=== PATIENT | male | born 1980 | race Caucasian/White ===

== ENCOUNTER 2018-02-19 15:24 | Emergency (ER) | payer OTHER ==
[~2018-02-19] VITALS: Ht 182.9 cm; Wt 97.1 kg
[2018-02-19] MEDS ORDERED: OLAN10TA3 PO (16:00)
[2018-02-19] MEDS ORDERED: PROP10TA8 (16:00)
[2018-02-19] MEDS ORDERED: AMLO5TAB2 (16:00)
[2018-02-19] MEDS ORDERED: CARB200T5 (16:00)
[2018-02-19] MEDS ORDERED: TERA1CAP3 (16:00)
[2018-02-19 16:58] LABS: BASOPHILS % (AUTO) 0 % (0-10); EOSINOPHILS # (AUTO) 0.4 10^3/uL (0.0-0.3); EOSINOPHILS % (AUTO) 7 % (0-10); HEMATOCRIT 42 % (40-54); HEMOGLOBIN 14.5 G/DL (13.3-17.7); LYMPHOCYTES # (AUTO) 2.3 X 10^3 (1.0-4.0); LYMPHOCYTES % (AUTO) 36 % (12-44); MEAN CORPUSCULAR HEMOGLOBIN 30 PG (25-34); MEAN CORPUSCULAR HGB CONC 34 G/DL (32-36); MEAN CORPUSCULAR VOLUME 87 FL (80-99); MONOCYTES # (AUTO) 0.5 X 10^3 (0.0-1.0); MONOCYTES % (AUTO) 8 % (0-12); NEUTROPHILS # (AUTO) 3.2 X 10^3 (1.8-7.8); NEUTROPHILS % (AUTO) 49 % (42-75); PLATELET COUNT 239 10^3/uL (130-400); RED BLOOD COUNT 4.84 10^6/uL (4.35-5.85); RED CELL DISTRIBUTION WIDTH 12.9 % (10.0-14.5); WHITE BLOOD COUNT 6.5 10^3/uL (4.3-11.0)
[2018-02-19 17:01] LABS: PROTHROMBIN TIME PATIENT 12.9 SEC (12.2-14.7)
[2018-02-19 17:10] LABS: ALANINE AMINOTRANSFERASE 20 U/L (0-55); ALBUMIN 4.4 GM/DL (3.2-4.5); ALKALINE PHOSPHATASE 89 U/L (40-136); BILIRUBIN,TOTAL < 0.1 MG/DL (0.1-1.0); BUN/CREATININE RATIO 8; CALCIUM 9.1 MG/DL (8.5-10.1); CARBON DIOXIDE 25 MMOL/L (21-32); CHLORIDE 106 MMOL/L (98-107); CREATININE SERUM 0.83 MG/DL (0.60-1.30); GFR ESTIMATED > 60; GLUCOSE 96 MG/DL (70-105); MAGNESIUM 2.1 MG/DL (1.8-2.4); POTASSIUM 4.2 MMOL/L (3.6-5.0); SODIUM 136 MMOL/L (135-145); TOTAL PROTEIN 6.9 GM/DL (6.4-8.2)
[2018-02-19 17:29] LABS: TSH (THYROID ANALYZER) 2.46 UIU/ML (0.35-4.94)
--- NOTE | 2018-02-19 17:43 | Diagnostic Imaging Report ---
PROCEDURE: CT head without contrast. TECHNIQUE: Multiple contiguous axial images were obtained through the brain without the use of intravenous contrast. INDICATION: Left-sided tingling and numbness. FINDINGS: Ventricles and cortical gyral pattern are normal. There is no intracranial hemorrhage. No mass effect. There is no extra-axial fluid collection. Basal cisterns are clear. Mastoid air cells and paranasal sinuses are clear. IMPRESSION: Negative CT scan of the head without contrast. Dictated by: Dictated on workstation # [id number]
[2018-02-19 18:00] LABS: BILIRUBIN,URINE NEGATIVE (NEGATIVE); CLARITY,URINE CLEAR; COLOR,URINE YELLOW; GLUCOSE, URINE (UA) NEGATIVE (NEGATIVE); KETONES,URINE NEGATIVE (NEGATIVE); LEUKOCYTE ESTERASE ,URINE NEGATIVE (NEGATIVE); NITRITE,URINE NEGATIVE (NEGATIVE); PH,URINE 5 (5-9); PROTEIN,URINE NEGATIVE (NEGATIVE); UROBILINOGEN,URINE NORMAL (NORMAL)
--- NOTE | 2018-02-19 18:05 | ED Cardiac General ---
History of Present Illness General Chief Complaint: Cardiac/General Problems Stated Complaint: ELEV BP/EXTREMITY TINGLING COMES AND GOES Nursing Triage Note: C/O OF HIGH B/P. STATES HE'S NOT FEELING LIKE HIMSELF. DID HAVE AN APPT. AT 4 TO GET CHECKED BUT DECIDED TO COME HERE. HE FEELS TINGLING L-ARM ET L-LEG ET FOOT.STATED HE STARTED A NEW B/P MED ON MONDAY. STATES HE DOESN'T KNOW IF HIS TEETH HAVE ANYTHING TO DO WITH HIS B/P. Source: patient Exam Limitations: other (SOMEWHAT VAGUE, DIFFICULT HISTORIAN) History of Present Illness Date Seen by Provider: Feb 19, 2018 Time Seen by Provider: 16:30 Initial Comments PT ARRIVES VIA POV C/O ELEVATED BLOOD PRESSURE PT STATES HE HAS A HISTORY OF HTN AND HAS BEEN ON TERAZOSIN FOR A LONG TIME, NO RECENT DOSE CHANGES. PT ALSO TAKES PROPRANOLOL, BUT STATES IT IS FOR "GENA" AND NOT PRESCRIBED FOR BLOOD PRESSURE PT STATES HE HAS SEVERAL TEETH THAT NEED TO BE PULLED AND A MONTH AGO, HE WAS SEEN AT A DENTAL CLINIC IN [place], BUT THEY WOULD NOT PULL HIS TEETH BECAUSE HIS BLOOD PRESSURE WAS TOO HIGH--WAS 168/106 THIS PAST Monday02/17/18, HE WENT BACK TO SAME DENTAL CLINIC IN TO GET THE TEETH PULLED, AND AGAIN HIS BLOOD PRESSURE WAS TOO HIGH AND THEY WOULD NOT PULL THEM--WAS 173/117 PT WAS AT [facility] YESTERDAY IN [place], [place] ( Monday ) AND STARTED "NOT FEELING LIKE MYSELF" AND WAS HAVING SOME TINGLING IN HIS LEFT HAND AND PRESSURE IN HIS LEFT LEG, SO WENT TO AN URGENT CARE THERE. BLOOD PRESSURE WAS ELEVATED AT 140/101, AND WAS STARTED ON NORVASC 5 MG DAILY--TOOK ONE DOSE YESTERDAY AND ONE DOSE THIS MORNING TODAY HE HAD THAT SAME FEELING OF "NOT FEELING LIKE HIMSELF" PT HAD AN APPOINTMENT TODAY AT 1600 AT [facility] FOR THESE PROBLEMS, BUT DECIDED TO COME HERE INSTEAD OF GOING THERE. PT HAS CHECKED HIS BLOOD PRESSURE AT LEAST 10 TIMES TODAY AND READINGS ARE HIGHER EVERY TIME HE CHECKS THEM NO CHEST PAIN NO SHORTNESS OF BREATH NO PALPITATIONS NO NAUSEA/VOMITING NO SWEATS NO VISION CHANGES NO DIZZINESS HAS HAD A MILD DULL, THROBBING HEADACHE OFF AND ON FOR MOST OF THE DAY, BUT IS GONE NOW--HAS NOT TAKEN ANYTHING FOR HEADACHE ALL SYMPTOMS HAVE GOTTEN BETTER SINCE HE HAS CALMED DOWN--ADMITS TO BEING ANXIOUS ABOUT THESE SYMPTOMS PCP: TANNER-FALGUNI, PROJECT ENGINEERING DIRECTOR Yeny GORMAN PT WORKS IN [place], LIV[facility] IN [facility] Allergies and Home Medications Allergies Coded Allergies: levofloxacin (Unverified Adverse Reaction, Intermediate, 02/19/18) PT. 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 Uncoded Allergies: PCN (Allergy, Mild, HIVES, 02/19/18) Home Medications Olanzapine 10 Mg Tablet, 10 MG PO HS, (Reported) Patient Home Medication List Home Medication List Reviewed: Yes Review of Systems Constitutional: no symptoms reported, No chills, No diaphoresis, No dizziness, No fever, No malaise, No weakness EENTM: No Symptoms Reported Respiratory: No Symptoms Reported Cardiovascular: See HPI, Denies Chest Pain, Denies Edema, Denies Irregular Heart Rate, Denies Lightheadedness, Denies Palpitations, Denies Syncope Gastrointestinal: No Symptoms Reported, Denies Abdominal Pain, Denies Nausea, Denies Vomiting Genitourinary: No Symptoms Reported Musculoskeletal: see HPI Skin: no symptoms reported Psychiatric/Neurological: See HPI, Anxiety, Paresthesia, Denies Weakness Endocrine: No Symptoms Reported Hematologic/Lymphatic: No Symptoms Reported Past [id number] Hx Patient Social History Alcohol Use: Past History (HISTORY OF ABUSE, DENIES RECENT USE, PER PT ON 02/19) Recreational Drug Use: Yes (HISTORY OF POLYSUBSTANCE ABUSE, INCLUDING METH-PER PT ON 02/19/18) Drug of Choice: POLYSUBSTANCES, INCLUDING METH-PER PT ON 02/19/18 Smoking Status: Current Everyday Smoker (1 PPD) Type Used: Cigarettes (1 PPD) Recent Foreign Travel: No Contact w/Someone Who Travel: No Recent Infectious Disease Expo: No Recent Hopitalizations: No Seasonal Allergies Seasonal Allergies: No Surgeries History of Surgeries: Yes Surgeries: Appendectomy Respiratory History of Respiratory Disorde: No Cardiovascular History of Cardiac Disorders: Yes Cardiac Disorders: Hypertension Neurological History of Neurological Disord: Yes Neurological Disorders: Headaches /Migraines Genitourinary History of Genitourinary Disor: No Gastrointestinal History of Gastrointestinal Di: No Musculoskeletal History of Musculoskeletal Dis: No Endocrine History of Endocrine Disorders: No HEENT History of HEENT Disorders: No Cancer History of Cancer: No Psychosocial History of Psychiatric Problem: Yes (SCHIZO-AFFECTIVE, MANIC - DEPRESSIVBE) Behavioral Health Disorders: Bipolar, Schizophrenia Integumentary History of Skin or Integumenta: No Blood Transfusions History of Blood Disorders: No Physical Exam Vital Signs Vital Signs - First Documented 02/19/18 15:46 Temp 98.2 Pulse 89 Resp 18 B/P (MAP) 136/106 (116) Pulse Ox 97 O2 Delivery Room Air Capillary Refill : Less Than 3 Seconds General Appearance: No Apparent Distress, WD/WN, Anxious HEENT: PERRL/EOMI, Other (POOR DENTITION, EXTENSIVE DENTAL DECAY TO ALL TEETH, DOWN TO GUMS. ) Neck: Full Range of Motion, Normal Inspection, Non Tender, Supple, No Carotid Bruit, No JVD Respiratory: Normal Breath Sounds, No Accessory Muscle Use, No Respiratory Distress Cardiovascular: Regular Rate, Rhythm, No Edema, No JVD, No Murmur, Normal Peripheral Pulses Gastrointestinal: Non Tender, Soft Extremity: Normal Capillary Refill, Normal Inspection, Normal Range of Motion, Non Tender, No Calf Tenderness, No Pedal Edema Neurologic/Psychiatric: Alert, Oriented x3, No Motor/Sensory Deficits, contracting support specialist II- XII Norm as Tested, No Abnormal Cerebellar Tests, Other (ANXIOUS) Skin: Normal Color, Warm/Dry Progress/Results/Core Measures Results/Orders Lab Results Laboratory Tests Test 02/19/18 16:40 02/19/18 17:50 Range/Units White Blood Count 6.5 4.3-11.0 10^3/uL Red Blood Count 4.84 4.35-5.85 10^6/uL Hemoglobin 14.5 13.3-17.7 G/DL Hematocrit 42 40-54 % Mean Corpuscular Volume 87 80-99 FL Mean Corpuscular Hemoglobin 30 25-34 PG Mean Corpuscular Hemoglobin Concent 34 32-36 G/DL Red Cell Distribution Width 12.9 10.0-14.5 % Platelet Count 239 130-400 10^3/uL Mean Platelet Volume 9.0 7.4-10.4 FL Neutrophils (%) (Auto) 49 42-75 % Lymphocytes (%) (Auto) 36 12-44 % Monocytes (%) (Auto) 8 0-12 % Eosinophils (%) (Auto) 7 0-10 % Basophils (%) (Auto) 0 0-10 % Neutrophils # (Auto) 3.2 1.8-7.8 X 10^3 Lymphocytes # (Auto) 2.3 1.0-4.0 X 10^3 Monocytes # (Auto) 0.5 0.0-1.0 X 10^3 Eosinophils # (Auto) 0.4 H 0.0-0.3 10^3/uL Basophils # (Auto) 0.0 0.0-0.1 10^3/uL Prothrombin Time 12.9 12.2-14.7 SEC INR Comment 1.0 0.8-1.4 Activated Partial Thromboplast Time 30 24-35 SEC Sodium Level 136 135-145 MMOL/L Potassium Level 4.2 3.6-5.0 MMOL/L Chloride Level 106 98-107 MMOL/L Carbon Dioxide Level 25 21-32 MMOL/L Anion Gap 5 5-14 MMOL/L Blood Urea Nitrogen 7 7-18 MG/DL Creatinine 0.83 0.60-1.30 MG/DL Estimat Glomerular Filtration Rate > 60 BUN/Creatinine Ratio 8 Glucose Level 96 70-105 MG/DL Calcium Level 9.1 8.5-10.1 MG/DL Magnesium Level 2.1 1.8-2.4 MG/DL Total Bilirubin < 0.1 L 0.1-1.0 MG/DL Aspartate Amino Transf (AST/SGOT) 19 5-34 U/L Alanine Aminotransferase (ALT/SGPT) 20 0-55 U/L Alkaline Phosphatase 89 40-136 U/L Troponin I < 0.30 <0.30 NG/ML Total Protein 6.9 6.4-8.2 GM/DL Albumin 4.4 3.2-4.5 GM/DL TSH [place] Testing 2.46 0.35-4.94 UIU/ML Urine Color YELLOW Urine Clarity CLEAR Urine pH 5 5-9 Urine Specific [place] 1.015 L 1.016-1.022 Urine Protein NEGATIVE NEGATIVE Urine Glucose (UA) NEGATIVE NEGATIVE Urine Ketones NEGATIVE NEGATIVE Urine Nitrite NEGATIVE NEGATIVE Urine Bilirubin NEGATIVE NEGATIVE Urine Urobilinogen NORMAL NORMAL MG/DL Urine Leukocyte Esterase NEGATIVE NEGATIVE Urine RBC (Auto) NEGATIVE NEGATIVE Urine RBC NONE /HPF Urine WBC NONE /HPF Urine Squamous Epithelial Cells NONE /HPF Urine Crystals NONE /LPF Urine Bacteria NEGATIVE /HPF Urine Casts NONE /LPF Urine Mucus NEGATIVE /LPF Urine Culture Indicated NO Urine Opiates Screen NEGATIVE NEGATIVE Urine Oxycodone Screen NEGATIVE NEGATIVE Urine Methadone Screen NEGATIVE NEGATIVE Urine Propoxyphene Screen NEGATIVE NEGATIVE Urine Barbiturates Screen NEGATIVE NEGATIVE Ur Tricyclic Antidepressants Screen NEGATIVE NEGATIVE Urine Phencyclidine Screen NEGATIVE NEGATIVE Urine Amphetamines Screen NEGATIVE NEGATIVE Urine Methamphetamines Screen NEGATIVE NEGATIVE Urine Benzodiazepines Screen NEGATIVE NEGATIVE Urine Cocaine Screen NEGATIVE NEGATIVE Urine Cannabinoids Screen NEGATIVE NEGATIVE My Orders Orders - LEDA PANDEY DO Saline Lock/Iv-Start (02/19/18 16:33) Ekg Tracing (02/19/18 16:33) Monitor-Rhythm Ecg Trace Only (02/19/18 16:33) Cbc With Automated Diff (02/19/18 16:33) Comprehensive Metabolic Panel (02/19/18 16:33) Drug Screen Stat (Urine) (02/19/18 16:33) Magnesium (02/19/18 16:33) Protime With Inr (02/19/18 16:33) Partial Thromboplastin Time (02/19/18 16:33) Thyroid Analyzer (02/19/18 16:33) Troponin I (02/19/18 16:33) Ua Culture If Indicated (02/19/18 16:33) Ct Head Wo (02/19/18 16:49) Vital Signs/I&O Vital Sign - Last 12Hours 02/19/18 02/19/18 15:46 18:44 Temp 98.2 Pulse 89 68 Resp 18 18 B/P (MAP) 136/106 (116) 124/88 (116) Pulse Ox 97 97 O2 Delivery Room Air Blood Pressure Mean: 116 Progress Note : Progress Note BP 120'S / 80'S FOR MOST OF ER STAY ECG Initial ECG Impression Date: Feb 19, 2018 Initial ECG Impression Time: 16:43 Initial ECG Rate: 82 Initial ECG Rhythm: Normal Sinus Initial ECG Impression: Normal Initial ECG Comparisson: No Previous ECG Available Diagnostic Imaging Comments CT HEAD--NO ACUTE PROCESS, PER RADIOLOGIST REPORT @ 1805 Reviewed: Reviewed by Me Departure Impression Impression: Primary Impression: HTN (hypertension) Additional Impressions: Anxiety Dental caries Disposition: 01 HOME, SELF-CARE Condition: Stable Departure-Patient Inst. Referrals: [facility]FALGUNI (PCP) Primary Care Physician REGINA GORMAN APRN (Family) Primary Care Physician Patient Instructions: Controlling Your Blood Pressure Through Lifestyle, Heart Healthy Diet, High Blood Pressure (DC) Add. Discharge Instructions: CONTINUE YOUR CURRENT MEDICATIONS PRESCRIBED, INCLUDING BOTH MEDICATIONS FOR BLOOD PRESSURE--NORVASC AND TERAZOSIN FOLLOW UP WITH [facility] IN 3-4 DAYS FOR FURTHER CARE RETURN TO ER IF SYMPTOMS WORSEN All discharge instructions reviewed with patient and/or family. Voiced understanding. LEDA PANDEY DO Feb 19, 2018 18:05
[2018-02-19 18:06] LABS: BACTERIA,URINE NEGATIVE /HPF
[2018-02-19 18:12] LABS: AMPHETAMINE SCREEN, URINE NEGATIVE (NEGATIVE); BARBITURATE SCREEN URINE NEGATIVE (NEGATIVE); BENZODIAZEPINES SCREEN URINE NEGATIVE (NEGATIVE); CANNABINOID SCREEN, URINE NEGATIVE (NEGATIVE); COCAINE SCREEN URINE NEGATIVE (NEGATIVE); METHADONE STAT NEGATIVE (NEGATIVE); METHAMPHETAMINE SCREEN URINE S NEGATIVE (NEGATIVE); OPIATE SCREEN URINE NEGATIVE (NEGATIVE); OXYCODONE STAT NEGATIVE (NEGATIVE); PROPOXYPHENE STAT NEGATIVE (NEGATIVE); TRICYCLIC ANTIDEPRESSANTS SCRE NEGATIVE (NEGATIVE)
[2018-02-19 18:44] VITALS: BP 124/88
== END 2018-02-19 18:44 | disposition home or self-care (01) ==
LOC: ER 15:29
DX: I10 Essential (primary) hypertension (principal); F41.9 Anxiety disorder, unspecified; K02.9 Dental caries, unspecified; F31.9 Bipolar disorder, unspecified; F25.9 Schizoaffective disorder, unspecified; G43.909 Migraine, unspecified, not intractable, without status migrainosus; F17.210 Nicotine dependence, cigarettes, uncomplicated; Z90.49 Acquired absence of other specified parts of digestive tract; Z88.0 Allergy status to penicillin; Z88.1 Allergy status to other antibiotic agents
CPT/HCPCS: 36415; 70450; 80053; 80306; 81000; 83735; 84443; 84484; 85025; 85610; 85730; 93005; 93041